=== PATIENT | male | born 1935 | race African-American/Black ===

== ENCOUNTER 2019-03-15 07:25 | Day surgery (SDC) | payer MEDICARE, OTHER ==
--- NOTE | 2019-03-12 11:16 | Opthalmology H&P ---
Ophthalmology H&P H&P Chief Complaint: decreased vision in left eye HPI Vision Affects Ability to: read, manage personal affairs Past Ocular History: glaucoma HPI Narrative blurry vison Exam Visual Acuity: OD 20/100 OS 20/200 Tension: OD 16 OS 17 Eye Exam: normal OU: external exam, palpebral fissure-width, marginal reflex distance, levator function, corneas, anterior chambers, fundus exam; findings: lens - NS Cataract OU Assessment/Plan Treatment Plan: cataract extraction w/ lens implant Goals of Treatment: improvement of vision, enhance quality of life Attestation Attestation The risks and benefits of the surgery as well as alternative procedures were explained to the patient in detail. Chirag Jaimes MD Mar 12, 2019 11:16
--- NOTE | 2019-03-12 11:17 | Pre-Procedure Note/Attestation ---
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 I attest that, if there was a reasonable possibility of needing a blood transfusion, the patient (or the patient's legal vendor representatives) was given the [facility] standardized written summary, pursuant to the Jose Roberto Mikes Blood Safety Act ([place] Health and Safety Code # 1645, as amended). I attest that I re-evaluated the patient just prior to the surgery and that there has been no change in the patient's H&P, except as documented below: Chirag Jaimes MD Mar 12, 2019 11:17
[2019-03-15] VITALS (7 sets, daily range): BP systolic 110–151; BP diastolic 46–84
[~2019-03-15] VITALS: Ht 172.7 cm; Wt 102.5 kg
[~2019-03-15 07:25] MED LIST: Akten 3.5% 1ml Btl LEFT EYE ONE; Proparacaine 0.5% Opth Soln 15ml LEFT EYE ONE; Tetracaine 0.5% Opth 4ml Soln LEFT EYE ONE
[2019-03-15] MEDS ORDERED: BSS 15ml BTL ONE ×3 (10:30→14:30)
[2019-03-15] MEDS ORDERED: Sodium Hyaluronate 14 mg/ml 0.85ml ONE (10:30)
[2019-03-15] MEDS ORDERED: Povidone-Iodine 5% opth solution ONE (10:30)
[2019-03-15] MEDS ORDERED: EPINEPHrine 1mg/1ml Amp ONE ×2 (10:30→13:40)
[2019-03-15] MEDS ORDERED: BSS 500ml btl ONE (10:30)
--- NOTE | 2019-03-15 10:38 | Anethesia Preoperative Eval ---
Anesthesia Pre-op PMH/ROS General Date of Evaluation: Mar 15, 2019 Anesthesiologist: Robert ASA Score: ASA 3 Mallampati Score Class I : Soft palate, uvula, fauces, pillars visible Class II: Soft palate, uvula, fauces visible Class III: Soft palate, base of uvula visible Class IV: Only hard plate visible Mallampati Classification: Class III Surgeon: Fiona Diagnosis: Left cataract Surgical Procedure: Left cataract extraction with IOL Anesthesia History: none Family History: no anesthesia problems Allergies: Coded Allergies: No Known Allergies (Unverified , 03/15/19) Medications: see eMAR Patient NPO?: Yes NPO Date: Mar 14, 2019 NPO Time: 22:00 Past Medical History Cardiovascular: Reports: HTN, CAD - s/p CABG, other - HLD; Denies: ME, valve dz, arrhythmia Pulmonary: Denies: asthma, COPD, NIMISHA, other Gastrointestinal/Genitourinary: Reports: other - prostate cancer s/p radiatio; Denies: GERD, CRI, ESRD Neurologic/Psychiatric: Denies: dementia, CVA, depression/anxiety, TIA, other Endocrine: Denies: DM, hypothyroidism, steroids, other HEENT: Reports: cataract (L), cataract (R), glaucoma; Denies: [place] (L), [place] (R), other Hematology/Immune: Denies: anemia, DVT, bleeding disorder, other Musculoskeletal/Integumentary: Reports: OA, other - gout; Denies: RA, DJD, DDD, edema Other: obesity PSxH Narrative: CABG Anesthesia Pre-op Phys. Exam Physician Exam see chart Constitutional: NAD Cardiovascular: RRR Respiratory: CTA Airway Exam Mallampati Score: Class III MO: limited ROM: limited Anesthesia Pre-op A/P Labs see chart Studies Pre-op Studies: EKG - sr Risk Assessment & Plan Assessment: ASA III Plan: MAC Status Change Before Surgery: No Pre-Antibiotics Drug: N/A Renée Fernando MD Mar 15, 2019 10:38
[2019-03-15] MEDS: Tobramycin Op Soln 0.3% 5ml LEFT EYE SCH ×3 (11:19→11:37)
[2019-03-15] MEDS: Diclofenac Sod 0.1% Op Soln LEFT EYE SCH ×3 (11:19→11:37)
[2019-03-15] MEDS: Tropicamide 1% Opth 15ml Soln LEFT EYE SCH ×3 (11:19→11:37)
[2019-03-15] MEDS: Cyclopentolate 1% Opth Sol 2ml LEFT EYE SCH ×3 (11:19→11:37)
[2019-03-15] MEDS: Phenylephrine 10% Opth Soln 5ml LEFT EYE SCH ×3 (11:19→11:37)
[2019-03-15] MEDS ORDERED: GARLIC1 EAC1 PO (11:36)
[2019-03-15] MEDS ORDERED: COMBIGAN EYE DRO5 ML OP (11:36)
[2019-03-15] MEDS ORDERED: BICALUTAMIDE50 MG ORAL (11:36)
[2019-03-15] MEDS ORDERED: MEGA RED OMEGA PO (11:36)
[2019-03-15] MEDS ORDERED: BYSTOLIC10 MG ORAL (11:36)
[2019-03-15] MEDS ORDERED: LUMIGAN2.5 ML BOTH EYES (11:36)
[2019-03-15] MEDS ORDERED: ATORVASTATIN CA20 MG ORAL (11:36)
[2019-03-15] MEDS ORDERED: HYDRALAZINE HCL25 M1 ORAL (11:36)
[2019-03-15] MEDS ORDERED: LUPRON DEPOT-PE30 MG IM (11:36)
[2019-03-15] MEDS ORDERED: AMLODIPINE BESY10 MG ORAL (11:36)
[2019-03-15] MEDS ORDERED: TEKTURNA PO (11:36)
[2019-03-15] MEDS ORDERED: LR 1000ml 1,000 ML IVLG SCH (11:59)
[2019-03-15] MEDS ORDERED: DiphenhydrAMINE 50mg/ml Inj IVP PRN (12:00)
[2019-03-15] MEDS ORDERED: LR 1000ml ONE (12:30)
[2019-03-15] MEDS ORDERED: fentaNYL 100 mcg/2 mL IV ONE (12:30)
[2019-03-15] MEDS ORDERED: Midazolam 2mg/2ml Inj ONE (12:30)
[2019-03-15] MEDS ORDERED: Lidocaine 1% MPF 10mg/ml 5ml ONE (12:30)
--- NOTE | 2019-03-15 13:20 | Immediate Post-Op Evaluation ---
Immediate Post-Op Evalulation Immediate Post-Op Evalulation Procedure: Exam under anesthesia left eye Date of Evaluation: Mar 15, 2019 Time of Evaluation: 13:20 IV Fluids: 300 Blood Products: 0 Estimated Blood Loss: 0 Urinary Output: 0 Blood Pressure Systolic: 113 Blood Pressure Diastolic: 55 Pulse Rate: 57 Respiratory Rate: 17 O2 Sat by Pulse Oximetry: 98 Temperature (Fahrenheit): 97.2 Pain Score (1-10): 0 Nausea: No Vomiting: No Complications 0 Patient Status: awake, reacts, patent, none Hydration Status: adequate Drug: N/A Renée Fernando MD Mar 15, 2019 13:20
--- NOTE | 2019-03-15 13:21 | 48 Hour Post Anesthesia Eval ---
Post Anesthesia Evaluation Procedure: Exam under anesthesia left eye Airway: patent Nausea: No Vomiting: No Pain Intensity: 0 Hydration Status: adequate Cardiopulmonary Status: at baseline Mental Status/LOC: patient returned to baseline Post-Anesthesia Complications: 0 Follow-up care needed: ready to discharge Renée Fernando MD Mar 15, 2019 13:21
[2019-03-15] MEDS ORDERED: Lidocaine 4% Amp ONE (13:40)
--- NOTE | 2019-03-15 14:35 | NUR ---
NURSE NOTES: Cataract extraction not performed as per Dr. Letty Jaimes. Dr. Jaimes spoke with daughter of the patient, Millie. Patient vital signs checked and assisted to dress and discharged home. Patient had no surgical dressing, no incisions made, etc. only eye exam under anesthesia. Patient and daughter instructed to follow up with Dr. Jaimes's office. Both verbalized understanding.
--- NOTE | 2019-03-16 13:05 | Operative Note - PDOC ---
Operative Note Operative Note Date of Operation/Procedure: Mar 15, 2019 Chief Complaint: blurry vision Pre-op Diagnosis: Nuclear Sclerotic Cataract Left Eye Procedure: Phaco with IOL Post-op Diagnosis: Pseudophakia Post-op Diagnosis: same as pre-op Operative Findings: consistent w/pre-op dx studies Surgeon: Fiona Anesthesiologist: Debra Anesthesia: MAC Specimen: none Complications: none Condition: stable Fluids: LR Estimated Blood Loss: none Drains: none Implant(s) used?: Yes Indications for Procedure cataract Description of Procedure This patient has been complaining visually significant cataract in the affected eye with the best corrected visual acuity under moderate glare conditions worse. The patient complains of difficulties with glare in performing activities of daily living and wants to manage personal affairs with comfort and accuracy and see well enough to move with safety at home and outdoors. The risks, benefits and alternatives of the procedure were discussed with the patient in the office prior to scheduling surgery. All questions from the patient were answered after the surgical procedure was explained in detail. The risks of the procedure as explained to the patient include, but are not limited to, pain, infection, bleeding, loss of vision, retinal detachment, need for further surgery, loss of lens nucleus, double vision, etc. Alternative procedures were discussed which include, to do nothing or seek a second opinion. Informed consent for this procedure was obtained from the patient. The patient was referred to a primary care physician for a cardiopulmonary clearance prior to surgery, after proper evaluation was done patient was properly scheduled for outpatient surgery. The patient was brought to the operating room where the anesthesiologist established I.V. lines and cardiac monitoring leads. Mild intravenous sedation was administered. The patient was then prepared with a 5% solution of povidone -iodine to the conjunctival fornix and lashes, and a 5% solution of povidone- iodine to the lids and periorbital skin. The patient was then draped in the usual sterile fashion. A lid speculum was then placed in the operative eye. A keratome blade was then used to create a biplanar incision into the anterior chamber. Viscoelastics was then instilled into the anterior chamber. A 3-mm single pass clear corneal incision was made just anterior to the vascular arcade of the temporal limbus using a keratome. Anterior capsulorrhexis was created followed by hydrodissection and hydrodelineation of the lens nucleus, and was freely movable in the capsular bag. The nucleus was then phacoemulsified. Following the deep groove formation, the lens was split bimanually and epicortex removed under vacuum burst-mode phacoemulsification. Peripheral cortex was removed with the irrigation and aspiration handpiece. The capsular bag was expanded with viscoelastic. The intraocular lens was then inspected for right power and size and thought to be satisfactory. The implant was inspected under the microscope and found to be free of defects. The implant was inserted into the cartridge system under viscoelastic and placed in the capsular bag. The trailing haptic was positioned with the cartridge system. Viscoelastics was removed from the anterior chamber using the irrigation and aspiration unit. The corneal wound was then tested for leaks and none were found. The lid speculum were then removed. Sponge and needle counts were correct. An eye patch and shield were placed over the operative eye. The patient was taken to the recovery room in stable condition. There were no complications. The patient tolerated the procedure well. The patient was then transferred to the ambulatory surgery unit in stable and satisfactory condition , was given detailed written instructions and asked to follow up in the office the next day. Chirag Jaimes MD Mar 16, 2019 13:05
--- NOTE | 2019-03-16 13:05 | Brief Operative Note ---
Immediate Post Operative Note Operative Note Chief Complaint: blurry vision Pre-op Diagnosis: Nuclear Sclerotic Cataract Left Eye Procedure: Phaco with IOL Post-op Diagnosis: Pseudophakia Post-op Diagnosis: same as pre-op Findings: consistent w/pre-op dx studies Surgeon: Fiona Anesthesiologist: Debra Anesthesia: MAC Specimen: none Complications: none Condition: stable Fluids: LR Estimated Blood Loss: none Drains: none Implant(s) used?: Yes Chirag Jaimes MD Mar 16, 2019 13:05
== END 2019-03-15 14:35 | disposition home or self-care (01) ==
LOC: SUR 07:25
DX: H25.12 Age-related nuclear cataract, left eye (principal); I11.9 Hypertensive heart disease without heart failure; I25.10 Atherosclerotic heart disease of native coronary artery without angina pectoris; Z95.1 Presence of aortocoronary bypass graft; E78.5 Hyperlipidemia, unspecified; M19.90 Unspecified osteoarthritis, unspecified site
CPT/HCPCS: 66984; J2250; J3010; 94003; 94150